=== PATIENT | male | born 1960 | race Caucasian/White ===

== ENCOUNTER 2019-06-21 15:45 | Emergency (ER) | payer BC ==
[~2019-06-21] VITALS: Ht 170.2 cm; Wt 104.3 kg
[~2019-06-21 15:45] MED LIST: IBUPROFEN600 MG PO; PRILOSEC20 MG PO
[2019-06-21] MEDS ORDERED: CYCLOBENZAPRINE10 MG PO (18:30)
== END 2019-06-21 18:46 | disposition home or self-care (01) ==
LOC: ED 15:45
DX: S16.1XXA Strain of muscle, fascia and tendon at neck level, initial encounter (principal); X58.XXXA Exposure to other specified factors, initial encounter; Z87.891 Personal history of nicotine dependence
CPT/HCPCS: 70498; 80053; 85025; 85379; 99284-25; Q9967

== ENCOUNTER 2020-07-08 07:35 | Day surgery (SDC) | payer BC ==
[~2020-07-08] VITALS: Ht 170.2 cm; Wt 100.0 kg
[~2020-07-08 07:35] MED LIST changes: +CYCLOBENZAPRINE10 MG PO
--- NOTE | 2020-07-08 09:45 | NUR ---
07/08/20 0945 Carmen Galvan 0964 PATIENT ARRIVES TO PACU AWAKE. DENIES PAIN OR NAUSEA. OXYGEN OFF. ROOM AIR SATS >95%.
--- NOTE | 2020-07-09 20:06 | OR ---
[facility] [address] [place], [place] [address] Signed DATE OF OPERATION: 07/08/2020 SURGEON: Jacque Valdovinos MD PREOPERATIVE DIAGNOSIS: History of left-sided adenomatous polyp 2014. POSTOPERATIVE DIAGNOSIS: Two small polyps, rectum and sigmoid. PROCEDURE: Total colonoscopy to cecum with cold morcellation polypectomy x2. ANESTHESIA: Intravenous sedation with fentanyl 100 mcg and Versed 8 mg. INDICATION: This 60-year-old white man is a patient Dr. Latrell Gutiérrez. He has history of left-sided polyp excision in 2014. He is symptom free, having no bleeding, diarrhea, or constipation. Has no family history of colon cancer. He is here for surveillance colonoscopy. He understands the risks of bleeding, infection, and perforation related to colonoscopy and wished to proceed. FINDINGS: The prep was excellent. Complete colonoscopy was undertaken to the cecum without question. There were 2 small polyps, one diminutive in the sigmoid and other more substantial in the rectum both excised with cold morcellation technique. There were no other findings of concern. DESCRIPTION OF PROCEDURE: The patient was brought to the endoscopy suite and placed in lateral decubitus position, given intravenous sedation to the point of slurred speech and nystagmus. Digital rectal examination was normal. An Olympus video colonoscope was passed in the rectum and manipulated throughout the colon ultimately intubating the cecum itself. The ileocecal valve and appendiceal orifice were normal. Scope was withdrawn from that point and examination throughout showed no sign of abnormality until a mid sigmoid diminutive polyp was noted. Narrow band imaging confirmed this to be a polyp. It was excised with cold morcellation technique. The scope was withdrawn and retroflexed view undertaken showing a relatively Electronically Signed By: JACQUE VALDOVINOS MD 07/09/202005 PATIENT NAME: BRIAN CHILDERS OPERATIVE REPORT DATE OF : 60 REPORT #: [id number] PHYSICIAN: JACQUE VALDOVINOS MD PCP: LATRELL GUTIÉRREZ MD REPORT IS CONFIDENTIAL AND NOT TO BE RELEASED WITHOUT AUTHORIZATION [facility] [address], [place] [address] Signed low rectal polyp. This was almost certainly adenomatous based on its appearance. Attempts were made to excise with a snare, but given the technical features of the rectum and retroflexed view and so forth it was not possible and therefore, a cold morcellation excision was undertaken. The scope was straightened, withdrawn, removed, and the patient was taken to the recovery room in good condition. CONCLUDING DIAGNOSIS: Polyps x2. PLAN: Recommend repeat colonoscopy in 5 years or sooner if clinically indicated. He will return to the ongoing care of Dr. Latrell Gutiérrez. MD STEFF Luke/JOEL /[id number] cc: Latrell Gutiérrez MD Copies: LATRELL GUTIÉRREZ DMD ~ Electronically Signed By: JACQUE VALDOVINOS MD 07/09/202005 PATIENT NAME: BRIAN CHILDERS OPERATIVE REPORT DATE OF : 60 REPORT #: [id number] PHYSICIAN: JACQUE VALDOVINOS MD PCP: LATRELL GUTIÉRREZ MD REPORT IS CONFIDENTIAL AND NOT TO BE RELEASED WITHOUT AUTHORIZATION
--- NOTE | 2020-07-11 15:08 | PATH ---
[facility] [address] [place], [place] [address] Signed SPECIMEN(S): A SIGMOID POLYP SPECIMEN(S): B RECTAL POLYP SPECIMEN SOURCE: A. SIGMOID POLYP B. RECTAL POLYP CLINICAL HISTORY: Colonoscopy with poss. biopsies. History of polyps, post polyps x 2. MICROSCOPIC DESCRIPTION: Histologic sections of all submitted blocks are examined by light microscopy. These findings, together with the gross examination, support the pathologic diagnosis. FINAL PATHOLOGIC DIAGNOSIS: A. Colon, sigmoid, polyp, polypectomy: - Colonic mucosa with no histopathologic abnormality. - Negative for dysplasia or malignancy. B. Rectum, polyp, polypectomy: - Hyperplastic polyp. - Negative for dysplasia or malignancy. COMMENT: Regarding specimen A: Multiple additional deeper levels were examined. NAL:cml:C2NR GROSS DESCRIPTION: Two specimens are received in two containers, labeled "BB." A. The specimen, labeled "BB, sigmoid colon polyp," is received in formalin and consists of one lee soft tissue fragment that measures 0.1 cm in greatest dimension. The specimen is entirely submitted in cassette (A1). B. The specimen, labeled "BB, rectum polyp," is received in formalin and consists of two lee soft tissue fragments that measure 0.1-0.2 cm in greatest dimension. The specimen is entirely submitted in cassette (B1). JS (under the direct supervision of a pathologist) The Gross Description was prepared using a voice recognition system. The report was reviewed for accuracy; however, sound-alike word errors, addition and/or deletions may occur. If there is any question about this report, please contact Client Services. PATIENT NAME: BRIAN CHILDERS PATHOLOGY DATE OF : 60 REPORT #: [id number] PHYSICIAN: [facility] PATHOLOGY PCP: LATRELL GUTIÉRREZ MD REPORT IS CONFIDENTIAL AND NOT TO BE RELEASED WITHOUT AUTHORIZATION [facility] [address] [place] [address] Signed PERFORMING LABORATORY: The technical component was performed [place] [address] (Candy Butcher: Racquel Keene MD; CLIA# [id number]). Professional interpretation was performed by [employer] [facility], [address] [address] (CLIA# [id number]). Diagnostician: Kailee Honeycutt MD Pathologist Electronically Signed 07/11/2020 Copies: ~ PATIENT NAME: BRIAN CHILDERS PATHOLOGY DATE OF : 60 REPORT #: [id number] PHYSICIAN: SHAGU[facility] PATHOLOGY PCP: LATRELL GUTIÉRREZ MD REPORT IS CONFIDENTIAL AND NOT TO BE RELEASED WITHOUT AUTHORIZATION
== END 2020-07-08 10:10 | disposition home or self-care (01) ==
LOC: OPS 07:35 → DS 07:35 → OPS 08:45 → DS 09:00 → OPS 10:10
PROVIDERS: ATTEND Surgery
PROC: 0DBN8ZX Excision of Sigmoid Colon, Via Natural or Artificial Opening Endoscopic, Diagnostic (ICD-10-PCS; 2020-07-08)
PROC: 0DBP8ZX Excision of Rectum, Via Natural or Artificial Opening Endoscopic, Diagnostic (ICD-10-PCS; principal; 2020-07-08 08:45)
DX: Z12.11 Encounter for screening for malignant neoplasm of colon (principal); K62.1 Rectal polyp; K63.5 Polyp of colon; R31.9 Hematuria, unspecified; K21.9 Gastro-esophageal reflux disease without esophagitis
CPT/HCPCS: 99153; G0500; J2250; J3010; J7121

== ENCOUNTER 2020-12-16 11:55 | Day surgery (SDC) | payer BC ==
[~2020-12-16] VITALS: Ht 167.6 cm; Wt 97.7 kg
[2020-12-16] MEDS ORDERED: FLOMAX0.4 MG PO (12:17)
--- NOTE | 2020-12-16 14:00 | NUR ---
12/16/20 1400 Leah Palmer 1355 PT ARRIVED TO PACU ON 2L VIA NC, PT AWAKE AND TALKING TO RN. VSS. PLAN OF CARE DISCUSSED.
--- NOTE | 2020-12-22 16:26 | OR ---
[facility] [address] [place], [place] [address] Signed DATE OF OPERATION: 12/16/2020 SURGEON: Jacque Valdovinos MD PREOPERATIVE DIAGNOSIS: Episodic dysphagia and CT scan finding showing thickened esophagus. POSTOPERATIVE DIAGNOSES: Severe distal esophagitis, marked inflammation, likely benign, but possibly dysplastic. PROCEDURE: Esophagogastroduodenoscopy with biopsy. ANESTHESIA: IV sedation; fentanyl 100 mcg and Versed 4 mg. INDICATION: This 60-year-old white man is a patient of Dr. Latrell Gutiérrez and in evaluation for nephrolithiasis underwent a CT scan, which showed a markedly thickened distal esophagus. The patient has longstanding reflux and only episodic use of PPI medication. He does complain of some dysphagia, but is not severe. He has no family history of esophageal cancer. He is admitted at this time to undergo upper endoscopy to better characterize the issue of the distal esophagus based on CT scan findings and his symptoms. He understands risks of bleeding, infection, and perforation, wished to proceed. FINDINGS: Indeed, there was marked severe inflammation and thickening of the distal esophageal mucosa. There may be Hackett's epithelium associated with this. More proximal esophagus was normal. The stomach and duodenum were normal except for hiatal hernia, which was quite obvious. CLOtest was -20 minutes post procedure. DESCRIPTION OF PROCEDURE: The patient was brought to the endoscopy suite and placed in lateral decubitus position after undergoing lidocaine hypopharyngeal anesthesia. He was given intravenous sedation with full cardiopulmonary monitoring to the point of slurred speech and nystagmus. A bite block was placed. An Olympus video upper endoscope was passed in the hypopharynx. The vocal cords appeared normal. Scope was advanced to the esophagus without problem. There was normal except in the distal portion where there was marked inflammatory change in thickening. Electronically Signed By: JACQUE VALDOVINOS MD 12/22/20 1626 PATIENT NAME: BRIAN CHILDERS OPERATIVE REPORT DATE OF : 60 REPORT #: [id number] PHYSICIAN: JACQUE VALDOVINOS MD PCP: LATRELL GUTIÉRREZ MD REPORT IS CONFIDENTIAL AND NOT TO BE RELEASED WITHOUT AUTHORIZATION [facility] [address] [place], [place] [address] Signed There is almost a flaky pseudo membranous mucosa distally. It did not have typical appearance of malignancy proper however. The scope was passed into the stomach without problem. Rugal folds and antral motility appeared normal. The pylorus was normal. Scope was passed through into the duodenum. Biopsies were taken of the duodenal bulb and the antrum for both YAKELIN and pathologic testing for the latter. Retroflexed view confirmed hiatal hernia. The scope was withdrawn to the distal esophagus. Narrow band imaging was undertaken and multiple biopsies taken. There may be underlying Hackett's epithelium. It was not entirely clear. The scope was withdrawn. A midesophageal biopsies at 25 cm were also undertaken. That esophageal portion was normal. The scope was removed and the patient was taken to the recovery room in good condition. CONCLUDING DIAGNOSES: Severe distal esophagitis, thick mucosal membranes, unclear if underlying Hackett's epithelium and uncertain regarding dysplasia or malignancy proper. PLAN: Recommend Prilosec 20 mg p.o. b.i.d. We will see back in the office in 4 to 6 weeks. Review his progress from clinical response of treatment. All this was reviewed with the patient. Jacque Valdovinos MD JM/MODL /[id number] cc: Latrell Gutiérrez MD Copies: LATRELL GUTIÉRREZ DMD ~ Electronically Signed By: JACQUE VALDOVINOS MD 12/22/20 1626 PATIENT NAME: BRIAN CHILDERS OPERATIVE REPORT DATE OF : 60 REPORT #: [id number] PHYSICIAN: JACQUE VALDOVINOS MD PCP: LATRELL GUTIÉRREZ MD REPORT IS CONFIDENTIAL AND NOT TO BE RELEASED WITHOUT AUTHORIZATION
--- NOTE | 2020-12-23 13:35 | PATH ---
[facility] [address] [place], [place] [address] Signed THIS IS AN ADDENDUM REPORT SPECIMEN(S): A DUODENUM SPECIMEN(S): B ANTRUM SPECIMEN(S): C DISTAL ESOPHAGUS SPECIMEN(S): D ESOPHAGUS AT 25 CM SPECIMEN SOURCE: A. DUODENUM B. ANTRUM C. DISTAL ESOPHAGUS D. ESOPHAGUS AT 25 CM CLINICAL HISTORY: EGD. Esophageal thickening and reflux. MICROSCOPIC DESCRIPTION: Histologic sections of all submitted blocks are examined by light microscopy. These findings, together with the gross examination, support the pathologic diagnosis. FINAL PATHOLOGIC DIAGNOSIS: A. Duodenum, biopsy: - No significant histopathology. B. Antrum, biopsy: - No significant histopathologic alterations. C. Distal esophagus, biopsy: - Acute esophagitis. - Fragments of fibropurulent debris consistent with the presence of an ulcer. - No evidence of neoplasia. D. Esophagus, 25 cm, biopsy: - Mucosal eosinophilia, see comment. COMMENT: Regarding specimen A, the sections from the duodenal biopsy show portions of duodenal mucosa with long finger-like villi. There is no villous atrophy, crypt hyperplasia or intraepithelial lymphocytosis, making a diagnosis of celiac disease unlikely. There is no evidence of peptic duodenitis, microorganisms, abnormal infiltrates or neoplasia. Regarding specimen B, the sections through the gastric biopsies show fragments of histologically unremarkable oxyntic mucosa. There is no evidence of acute or PATIENT NAME: BRIAN CHILDERS BEN PATHOLOGY DATE OF : 60 REPORT #: [id number] PHYSICIAN: SHAGUFTA PATHOLOGY PCP: LATRELL GUTIÉRREZ MD REPORT IS CONFIDENTIAL AND NOT TO BE RELEASED WITHOUT AUTHORIZATION [facility] [address] [place], [place] [address] Signed chronic inflammation. There is no evidence of H. pylori, intestinal metaplasia, abnormal infiltrates or neoplasia. Regarding specimen C, the sections through the esophageal biopsy show a reactive appearing and acutely inflamed squamous epithelium. There is no evidence of glandular mucosa. There are also fragments of inflammatory debris consistent with the presence of an ulcer or erosion. No fungi are identified in the inflammatory exudate. No viral inclusions are seen. PAS stain to confirm the absence of fungi is pending. Results will follow in an addendum report. Regarding specimen D, The sections through the biopsy show the presence of squamous epithelium that is infiltrated by large numbers of eosinophils. They do not number 20 per high-power field as in classical eosinophilic esophagitis and there are no eosinophilic microabscesses. Up to 16 eosinophils per high-power field are identified in this specimen. There are more eosinophils than are typically seen in patients with GERD. This patient may have incomplete manifestations of eosinophilic esophagitis or GERD with increased eosinophils. The changes may also be produced by reactions to drugs, infections or allergies. TWK:em:C2NR GROSS DESCRIPTION: Four specimens are received in four containers labeled with "BB". A. The specimen, labeled "BB, duodenum," is received in formalin and consists of two fragments of pink-lee tissue (0.2-0.3 cm in greatest dimension). The specimen is submitted entirely in cassette (A1). B. The specimen, labeled "BB, antrum," is received in formalin and consists of two fragments of pink-lee tissue (0.2-0.3 cm in greatest dimension). The specimen is submitted entirely in cassette (B1). C. The specimen, labeled "BB, distal esophagus," is received in formalin and consists of multiple fragments of pink-lee tissue (0.1-0.3 cm in greatest dimension). The specimen is submitted entirely in cassette (C1). D. The specimen, labeled "BB, esophagus at 25 cm," is received in formalin and consists of two fragments of pink-lee tissue (0.3-0.4 cm in greatest dimension). The specimen is submitted entirely in cassette (D1). AC (under the direct supervision of a pathologist) PATIENT NAME: BRIAN CHILDERS PATHOLOGY DATE OF : 60 REPORT #: [id number] PHYSICIAN: SHAGUFTA PATHOLOGY PCP: LATRELL GUTIÉRREZ MD REPORT IS CONFIDENTIAL AND NOT TO BE RELEASED WITHOUT AUTHORIZATION [facility] [address] [place], [place] [address] Signed The Gross Description was prepared using a voice recognition system. The report was reviewed for accuracy; however, sound-alike word errors, addition and/or deletions may occur. If there is any question about this report, please contact Client Services. PERFORMING LABORATORY: The technical component was performed by [employer], [address] [place] [id number] (Mechanical Maintenance: Racquel Keene MD; CLIA# [id number]). [facility], [address] [place] [address]. REASON FOR ADDENDUM: To add results of additional testing for specimen C. ADDENDUM COMMENT: A PAS stain is negative for fungal microorganisms. Control slide stained appropriately positive. There is no change in the above diagnosis. TWK:[facility] The technical component was performed by [employer], [address] [place] [id number] (Mechanical Maintenance: Racquel Keene MD; CLIA# [id number]). [facility], [address] [address] (CLIA# [id number]). Diagnostician: Michael Martinez MD Pathologist Electronically Signed 12/23/2020 Copies: ~ PATIENT NAME: BRIAN CHILDERS PATHOLOGY DATE OF : 60 REPORT #: [id number] PHYSICIAN: SHAGUFTA PATHOLOGY PCP: LATRELL GUTIÉRREZ MD REPORT IS CONFIDENTIAL AND NOT TO BE RELEASED WITHOUT AUTHORIZATION
== END 2020-12-16 14:40 | disposition home or self-care (01) ==
LOC: OPS 11:55 → DS 11:55 → OPS 14:00
PROVIDERS: ATTEND Surgery
PROC: 0DB68ZX Excision of Stomach, Via Natural or Artificial Opening Endoscopic, Diagnostic (ICD-10-PCS; 2020-12-16)
PROC: 0DB28ZX Excision of Middle Esophagus, Via Natural or Artificial Opening Endoscopic, Diagnostic (ICD-10-PCS; 2020-12-16)
PROC: 0DB38ZX Excision of Lower Esophagus, Via Natural or Artificial Opening Endoscopic, Diagnostic (ICD-10-PCS; 2020-12-16)
PROC: 0DB98ZX Excision of Duodenum, Via Natural or Artificial Opening Endoscopic, Diagnostic (ICD-10-PCS; principal; 2020-12-16 14:00)
DX: K21.00 Gastro-esophageal reflux disease with esophagitis, without bleeding (principal); K44.9 Diaphragmatic hernia without obstruction or gangrene; Z20.822 Contact with and (suspected) exposure to COVID-19
CPT/HCPCS: 99153; G0500; J2250; J3010; J7121; U0003

== ENCOUNTER 2021-04-19 15:07 | Emergency (ER) | payer OTHER, BC ==
[~2021-04-19] VITALS: Ht 167.6 cm; Wt 97.5 kg
[~2021-04-19 15:07] MED LIST changes: +FLOMAX0.4 MG PO
== END 2021-04-19 17:53 | disposition home or self-care (01) ==
LOC: ED 15:07
DX: S83.91XA Sprain of unspecified site of right knee, initial encounter (principal); W10.9XXA Fall (on) (from) unspecified stairs and steps, initial encounter; Y99.0 Civilian activity done for income or pay; Z79.899 Other long term (current) drug therapy
CPT/HCPCS: 73560; 99283-25; A9270

== ENCOUNTER 2021-05-01 10:56 | Day surgery (SDC) | payer BC ==
[~2021-05-01] VITALS: Ht 167.6 cm; Wt 96.8 kg
--- NOTE | ~2021-05-01 | OR ---
[facility] [address] [place], [place] [address] Draft DATE OF OPERATION: 05/01/2021 SURGEON: Jacque Valdovinos MD PREOPERATIVE DIAGNOSIS: Known severe ulcerative esophagitis (December 16, 2020), possible eosinophilic esophagitis concurrently. POSTOPERATIVE DIAGNOSIS: Persistent but improved distal ulcerative esophagitis. PROCEDURE: Esophagogastroduodenoscopy with biopsy. ANESTHESIA: Intravenous sedation, fentanyl 100 mcg and Versed 3 mg. INDICATION: A 61-year-old white man a patient Dr. Gutiérrez known to me from the past having undergone upper endoscopy on December 16, 2020 showing severe ulcerative esophagitis. It is noted that an addendum pathology report confirmed elevated levels of eosinophils, but not reaching the threshold of true eosinophilic esophagitis. He was treated with Prilosec 20 mg a day and initiated on fluticasone spray two puffs swallowed b.i.d. with one week of rest per month regarding the Flonase. He has had much improvement of his swallowing, which was previously significant. Though he did have severe distal esophagitis, he did not have a well-formed stricture previously. He is here for short-term surveillance of the problem in particular to affirm or refute eosinophilic esophagitis but also ascertain that the distal esophageal ulceration is improving or healing for fear of progression to malignancy over time. The risk of bleeding, infection, and perforation were reviewed with him. He understands and wished to proceed. FINDINGS: Indeed there were still some distal esophageal ulcerative changes but no sign of neoplasm proper. Stomach and duodenum were normal essentially. The flap valve was marginal consistent with hiatal hernia. The midesophagus had a chronically inflamed appearance, but no sign of stricture proper. Biopsies were dominantly taken in the distal esophagus and mid esophagus. DESCRIPTION OF PROCEDURE: The patient was brought to the endoscopy suite and given topical lidocaine PATIENT NAME: BRIAN CHILDERS OPERATIVE REPORT DATE OF : 60 REPORT #: [id number] PHYSICIAN: JACQUE VALDOVINOS MD PCP: LATRELL GUTIÉRREZ MD REPORT IS CONFIDENTIAL AND NOT TO BE RELEASED WITHOUT AUTHORIZATION [facility] [address] [place], [place] [address] Draft hypopharyngeal spray anesthesia and placed in the lateral decubitus position. He was given intravenous sedation to the point of slurred speech and nystagmus. A bite block was placed. An Olympus video upper endoscope was passed in the hypopharynx. The vocal cords appeared normal including the posterior commissure. The scope was advanced to the esophagus without problem. In the distal portion was obvious persistence of esophageal ulceration, but no sign of neoplasm and no Hackett's epithelium. Scope was advanced to the stomach, which was insufflated with air. Rugal folds were normal. There was no sign of ulceration. The pylorus was normal. Scope was passed through into the duodenum, which was normal. Scope was withdrawn and retroflexed view was undertaken showing a relatively small to moderate hiatal hernia. Scope was straightened and withdrawn to the distal esophagus where multiple biopsies were taken of the area of ulceration in the distal most esophagus. There was no evidence of Hackett's epithelium. The scope was withdrawn in the mid esophagus multiply biopsied as well as it had a chronic inflammatory appearance and there appeared to be a small pits though this may have been a visual artifact. Further withdrawal of scope showed no other abnormalities. The patient was taken to the recovery room in good condition. CONCLUDING DIAGNOSIS: Persistent distal esophageal inflammation and ulceration, but improved. Clinically quite silent at this point. PLAN: Pending biopsies regarding the esophagus, I would recommend continued use of Prilosec 20 mg daily and fluticasone two sprays swallowed b.i.d. resting from the fluticasone therapy one week out of four. He will see me back in approximately eight weeks. We will review his progress and his pathology reports. MD STEFF Luke/MODL /[id number] cc: Latrell Gutiérrez MD Dr. PATIENT NAME: BRIAN CHILDERS OPERATIVE REPORT DATE OF : 60 REPORT #: [id number] PHYSICIAN: JACQUE VALDOVINOS MD PCP: LATRELL GUTIÉRREZ MD REPORT IS CONFIDENTIAL AND NOT TO BE RELEASED WITHOUT AUTHORIZATION [facility] [address] [place] [address] [place], [place] [address] Draft Copies: LATRELL GUTIÉRREZ [facility] ~ PATIENT NAME: BRIAN CHILDERS OPERATIVE REPORT DATE OF : 60 REPORT #: [id number] PHYSICIAN: JACQUE VALDOVINOS MD PCP: LATRELL GUTIÉRREZ MD REPORT IS CONFIDENTIAL AND NOT TO BE RELEASED WITHOUT AUTHORIZATION
[~2021-05-01 10:56] MED LIST changes: +ARNUITY ELLIPT50 MCG; +CENTRUM ADULTS1 EACH PO; +VITAMIN C500 M1 PO
--- NOTE | 2021-05-01 11:05 | NUR ---
BOTH NARES SWABBED FOR COVID-19 WITHOUT COMPLICATION. SAMPLE TAKEN TO LAB.
--- NOTE | 2021-05-01 13:23 | NUR ---
05/01/21 1323 Leah Palmer 1317 PT ARRIVED TO PACU AND TALKING TO RN. VSS. PT DENIES PAIN AND NAUSEA. PLAN OF CARE DISCUSSED.
--- NOTE | 2021-05-03 16:22 | PATH ---
[facility] [address] [place], [place] [address] Signed SPECIMEN(S): A LOW ESOPHAGEAL BIOPSY SPECIMEN(S): B MID ESOPHAGEAL BIOPSY SPECIMEN SOURCE: A. LOW ESOPHAGEAL BIOPSY B. MID ESOPHAGEAL BIOPSY CLINICAL HISTORY: EGD. GERD with ulcerative esophagitis; family history of esophageal CA. Postop Dx: Persistent ulcerative esophagitis. FINAL PATHOLOGIC DIAGNOSIS: A. Esophagus, lower, biopsy: - Esophageal squamous mucosa with active esophagitis and ulceration. (see comment) B. Esophagus, mid, biopsy: - Esophageal squamous mucosa with no significant pathologic changes. - Negative for increased intraepithelial eosinophils. COMMENT: A. Special stains for fungal organisms are negative (GMS). Immunohistochemical stains for CMV and HSV1 and HSV2 are negative. All controls stain appropriately. BRP:zackh:cml:C2NR MICROSCOPIC EXAMINATION: Histologic sections of all submitted blocks are examined by light microscopy. These findings, together with the gross examination, support the pathologic diagnosis. GROSS DESCRIPTION: Two specimens are received in two containers, labeled "BB." A. The specimen, labeled "BB," and designated on the requisition "lower esophagus," is received in formalin and consists of three lee soft tissue fragments that measure 0.3-0.4 cm in greatest dimension. The specimen is entirely submitted in cassette (A1). B. The specimen, labeled "BB," and designated on the requisition "mid esophagus," is received in formalin and consists of multiple thin, lee soft tissue fragments that measure 2.0 x 0.3 x 0.2 cm in greatest dimension. The specimen is entirely submitted in cassette (B1). AT (under the direct supervision of a pathologist) PATIENT NAME: BRIAN CHILDERS PATHOLOGY DATE OF : 60 REPORT #: [id number] PHYSICIAN: SHAGUFTA PATHOLOGY PCP: LATRELL GUTIÉRREZ MD REPORT IS CONFIDENTIAL AND NOT TO BE RELEASED WITHOUT AUTHORIZATION [facility] [address] [place] [id number] Signed The Gross Description was prepared using a voice recognition system. The report was reviewed for accuracy; however, sound-alike word errors, addition and/or deletions may occur. If there is any question about this report, please contact Client Services. ADDITIONAL NOTES: Immunohistochemical and/or in situ hybridization studies were performed on this case with the appropriate positive controls that react as expected. This test was developed and its performance characteristics determined by [email or web address]. It has not been cleared or approved by the U.S. Food and Drug Administration. The FDA has determined that such clearance or approval is not necessary. This test is used for clinical purposes. It should not be regarded as investigational or for research. [facility] is certified under the Clinical Laboratory Improvement Amendments of 1988 (CLIA) as qualified to perform high complexity clinical laboratory testing. This assay has not been validated for specimens that have been decalcified. PERFORMING LABORATORY: The technical component was performed by [email or web address], [address] [place] [id number] (Research Affiliate: Racquel Keene MD; CLIA# [id number]). [facility], [address] [address] (CLIA# [id number]). Diagnostician: Ronnell Howe MD Pathologist Electronically Signed 05/03/2021 Copies: ~ PATIENT NAME: ALVARADO BEN PATHOLOGY DATE OF : 60 REPORT #: [id number] PHYSICIAN: SHAGUFTA PATHOLOGY PCP: LATRELL GUTIÉRREZ MD REPORT IS CONFIDENTIAL AND NOT TO BE RELEASED WITHOUT AUTHORIZATION
== END 2021-05-01 13:55 | disposition home or self-care (01) ==
LOC: OPS 10:56 → DS 10:56 → OPS 13:00
PROVIDERS: ATTEND Surgery
PROC: 0DB38ZZ Excision of Lower Esophagus, Via Natural or Artificial Opening Endoscopic (ICD-10-PCS; principal; 2021-05-01 13:00)
DX: K22.10 Ulcer of esophagus without bleeding (principal); K21.00 Gastro-esophageal reflux disease with esophagitis, without bleeding; Z20.822 Contact with and (suspected) exposure to COVID-19; Z80.0 Family history of malignant neoplasm of digestive organs
CPT/HCPCS: 99153; C9803; G0500; J2250; J3010; J7121; U0003

== ENCOUNTER 2021-08-14 09:55 | Day surgery (SDC) | payer OTHER, BC ==
--- NOTE | 2021-08-10 16:04 | NUR ---
TO WHOME IT MAY CONCERN BRIAN CHILDERS HAS TO BE AT THE HOSPITAL AT 8AM ON 08-11-21 FOR A PRE SURGICAL TEST. IF QUESTIONS PLEASE CALL DAY SURGERY [phone] THANK YOU SILVANA GÓMEZ MSN RN PRE ADMIT NURSE
[~2021-08-14] VITALS: Ht 167.6 cm; Wt 96.4 kg
[2021-08-14] MEDS ORDERED: CELECOXIB200 MG PO (12:23)
[2021-08-14] MEDS ORDERED: HYDROCODON-ACE1 EA10 PO (12:23)
--- NOTE | 2021-08-14 12:35 | NUR ---
08/14/21 1235 Mireille Gómez 1228- PT ARRIVES TO PACU NONAROUSABLE TO STIMULI. RESP EVEN AND UNLABORED. OXYGEN SAT HIGH 90'S TO 100% ON 6L VIA MASK.
--- NOTE | 2021-08-14 13:09 | NUR ---
1300 PT BACK TO ROOM FROM PACU AWAKE AND ALERT, PT DENIES PAIN AND NAUSEA. PT DRINKING WATER AND EATING CRACKERS TOLERATES WELL. WARM BLANKETS GIVEN , CALL LIGHT WITHIN REACH.
--- NOTE | 2021-08-14 14:39 | NUR ---
1415 RESTING COMFORTABLEY DENIES PAIN OR NAUSEA, DECLINES ANYTHING ELSE TO EAT OR DRINK, RT LEG CMS INTACT. DRESSING CLEAN AND DRY, PT REPORTS READINESS TO GO HOME IV DC'D TIP IN TACT, DISCHARGE INSTRUCTIONS GIVEN, PT VOICED UNDERSTANDING.
--- NOTE | 2021-08-15 07:32 | OR ---
[facility] [address] [place], [place] [address] Signed DATE OF OPERATION: 08/14/2021 SURGEON: Luther Mendoza MD PREOPERATIVE DIAGNOSIS: Medial meniscus tear, right knee. POSTOPERATIVE DIAGNOSIS: Medial meniscus tear, right knee. PROCEDURE PERFORMED: Right knee arthroscopy with partial medial meniscectomy. TOP CARRIER: VIRGINIA Baltazar. Larissa was present for the entire procedure. ANESTHESIA: General. BLOOD LOSS: Minimal. BRIEF HISTORY: is a 61-year-old gentleman with pain and locking in his knee. He had an MRI consistent with fairly large medial meniscus tear. Risks and benefits of the operative treatment were discussed with him. He elected to proceed. Once consent was obtained, he was taken to the operating room. After adequate anesthesia, he was placed on operating table. The left leg was flexed, abducted and externally rotated on a well-padded leg jacob. The right was placed in a leg jacob with a foam pad. The leg was then prepped and draped in a standard sterile fashion. Portal sites were injected using 0.25% Marcaine with epinephrine and standard inferolateral and superolateral portals were made. The scope was introduced into the knee. ARTHROSCOPIC FINDINGS: Minimal synovitis was noted primarily along the medial joint line. The patella was noted to be stable and track well. The medial and lateral gutters were clear. ACL and PCL were intact. Lateral compartment was intact. Medial compartment showed no significant chondromalacia. The meniscus was torn from mid posterior to the mid body medially. Electronically Signed By: LUTHER MENDOZA MD 08/15/21 0732 PATIENT NAME: BRIAN CHILDERS OPERATIVE REPORT DATE OF : 60 REPORT #: [id number] PHYSICIAN: LUTHER MENDOZA MD PCP: LATRELL GUTIÉRREZ MD REPORT IS CONFIDENTIAL AND NOT TO BE RELEASED WITHOUT AUTHORIZATION [facility] [address] [place], [place] [address] Signed DESCRIPTION OF PROCEDURE: Standard inferomedial portal was made after localization using a spinal needle. The straight and curved biters were used to trim the meniscus tear to a stable rim, this was smoothed and feathered out using the shaver. All debris was evacuated as we went. The scope was then withdrawn, portals closed with 3-0 nylon and dressed with Adaptic, ABD, and Gómez wrap. He tolerated the procedure well. Sponge, needle, and instrument counts were correct. Luther Mendoza MD BA/LEONILAL /[id number] Copies: ~ Electronically Signed By: LUTHER MENDOZA MD 08/15/21 0732 PATIENT NAME: BRIAN CHILDERS OPERATIVE REPORT DATE OF : 60 REPORT #: [id number] PHYSICIAN: LUTHER MENDOZA MD PCP: LATRELL GUTIÉRREZ MD REPORT IS CONFIDENTIAL AND NOT TO BE RELEASED WITHOUT AUTHORIZATION
== END 2021-08-14 14:28 | disposition home or self-care (01) ==
LOC: DS 09:55
PROVIDERS: ATTEND Specialist
PROC: 0SBC4ZZ Excision of Right Knee Joint, Percutaneous Endoscopic Approach (ICD-10-PCS; principal; 2021-08-14 12:00)
DX: S83.241A Other tear of medial meniscus, current injury, right knee, initial encounter (principal); X50.9XXA Other and unspecified overexertion or strenuous movements or postures, initial encounter; Z87.891 Personal history of nicotine dependence
CPT/HCPCS: J0131; J1100; J1885; J2001; J2405; J2704; J3010

== ENCOUNTER 2021-11-07 05:41 | Observation (INO) | payer BC ==
--- NOTE | 2021-10-23 16:42 | NUR ---
PT DID NOT SHOW UP FOR SCHEDULED PRE-ADMIT AT 1600. PT PHONED, NO ANSWER AND VOICEMAIL LEFT TO CALL DS DEPT.
[~2021-11-07] VITALS: Ht 167.6 cm; Wt 97.7 kg
[~2021-11-07 05:41] MED LIST changes: +CELECOXIB200 MG PO; +HYDROCODON-ACE1 EA10 PO; +PRILOSEC OTC20 MG PO; -PRILOSEC20 MG PO
--- NOTE | 2021-11-07 09:44 | NUR ---
11/07/21 0944 Makenna Nichols 0927 PT ARRIVED IN PACU NON RESPONSIVE TO NOXIOUS STIMULI WITH OPA IN PLACE. 0929 PT REACTIVE. OPA REMOVED. 35 SITTING UP IN BED WITH NO C/O'S.
--- NOTE | 2021-11-07 10:21 | NUR ---
PT ARRIVED FROM PACU, REPORT RECEIVED FROM NOLAN ARGUETA. PT ALERT AND ORIENTED TO ALL BUT STATES HE FEELS "PRETTY GROGGY." PT DENIES PAIN AND NAUSEA. NO HORSE VOICE OR EXCESSIVE SWALLING NOTED. NO EXCESSIVE SWELLING TO NECK NOTED. PT REPORTS NO CHANGES TO ADMISSION INFORMATION. ALL BELONGINGS BROUGHT TO ROOM WITH PT IN HIS BAG AND PLACED IN CLOSET. IV ASSESSED, WNL, NO S/S OF PHLEBITIS NOTED. IV FLUIDS STARTED. TRACE EDMA NOTED TO BLE. SCD'S IN PLACE. PT DENIES CALF PAIN. CMS INTACT. ACTICOAT DRESSING TO THROAT WNL, C/D/I BUT FOR PIN POINT SPOT OF RED DRAINAGE. PT DENIES TROUBLE SWALLOWING. PT RESTING IN BED, NO ADDITIONAL REQUESTS OR COMPLAINTS. CPOX IN PLACE WITH OXGYEN SATURATIONS 93-98 ON ROOM AIR. ICE WATER PROVIDED. PT OREINTED TO ROOM AND USE OF CALL LIGHT. NO ADDITIONAL NEEDS. CALL LIGHT WITHIN REACH. BED RAILS UP. BED ALARM ON.
--- NOTE | 2021-11-07 10:24 | NUR ---
PT ALERT, ORIENTED AND SEEMS READY FOR SURGERY. SHORT CONVERSATION AND VISIT. GAVE BLESSING AND WILL FOLLOW
--- NOTE | 2021-11-07 11:03 | NUR ---
VITAL SIGNS DUE. PT CONTINUES RESTING IN BED, EYES OPEN, PT ALERT AND ORIENTED. DRESSING UNCHANGED WITH ONLY OLD SMALL PINPOINT SPOT OF RED DRAINAGE. PT REPORTS NO DIFFICULTY SWALLOWING. NO HORSE VOICE NOTED. PT DENEIS ANY NUMBNESS OR TINGLING IN HANDS AND FEET. NO NEW SWELLING TO NECK NOTED. VITAL SIGNS STABLE. PT TOLERATING ROOM AIR WITH OXGYEN SATURATIONS ABOVE 94%. BED RAILS UP. CALL LIGHT WITHIN REACH. NO ADDITIONAL REQUESTS OR COMPLAINTS.
--- NOTE | 2021-11-07 12:00 | NUR ---
VITAL SIGNS DUE. PT RESTING IN BED, AWAKE AND ALERT. PT DENIES PAIN AND NAUSEA. PT TALKING AND TELLING STORIES. NORMAL VOICE TONES NOTED, NO HORSE VOICE. NO NEW SWELLING TO THROAT. DRESSING UNCHANGED WITH ONLY PIN POINT SPOT OF RED DRAINAGE, UNCHANGED. PT DENIES NUMBNESS OR TINLING IN HANDS AND FEET. PT REPORTS SWALLOWING FEELS "NORMAL." APPLE JUICE AND CLEAR LIQUID TRAY PROVIDED. ICE WATER REFILLED. NO ADDITIONAL REQUESTS OR COMPLAINTS. CALL LIGHT [employer] EntertainmentIN REACH. BED ALARM ON.
--- NOTE | 2021-11-07 13:02 | NUR ---
VITALS AND ASSESSMENT DUE. PT CONTINUES RESTING IN BED WITH HEAD OF BED ELEVATED TO 30 DEGREES, READING MAGAZINE. PT REPORTS 1/10 NECK PAIN AND DENIES NEED FOR PAIN MEDICATION AT THIS TIME STATING "I DONT' EVEN REALLY NOTICE IT" PT DENIES NAUSEA. PT ALERT AND ORIENTED TO ALL AND NO LONGER DROWSY. NO SWALLOWING ISSUES NOTED. NO HORSE VOICE NOTED. NO NEW SWELLING OR DRAINAGE NOTED FROM NECK WOUND. DRESSING UNCHANGED, SCANT SPOT OF OLD RED SHADOWING. PT DENIES NUMBNESS OR TINGLING IN HANDS OR FEET. PT HAS VOIDED 300ML CLEAR YELLOW URINE AND IS TOELRATING PO FLUIDS (APPLE JUICE, SORBET AND WATER). PT DENEIS ADDITIONAL NEEDS AT THIS TIME. CALL LIGHT WITHIN REACH. BED RAILS UP.
--- NOTE | 2021-11-07 15:14 | NUR ---
THIS RN TO ROOM TO CHECK ON PT. PT CONTINUES TO DENY PAIN AND NAUSEA. PT STATES "MY NECK DOESN'T BOTHER ME AT ALL, SOMETIMES MY LOWER BACK DOES." PT TELLING STOIRES FROM HIS CAREER. DRESSING TO NECK LOOSE ON RIGHT SIDE. REINFORCED WITH ADDITONAL OPSITE. DRESSING OTHERWISE UNCHANGED. NO CHANGES IN VOICE NOTED. PT CONTINUES TO DENY NUMBNESS, TINGLING OR DIFFICULTY SWALLOWING. PT ALSO DENIES EXCESSIVE SWALLOWING. OXYGEN SATURATION 97% ON ROOM AIR. STAND BY ASSIST UP TO CHAIR, PT STEADY ON FEET. PT LOOKING OUT WINDOW. NO ADDIITONAL REQUESTS OR COMPLAINTS. CALL LIGHT WITHIN REACH.
--- NOTE | 2021-11-07 16:01 | NUR ---
PT POST OP DAY ZERO AFTER LEFT THYROID LOBECTOMY. PT UP WITH STAND BY ASSIST TO CHAIR, STEADY ON FEET. PT TOLERATING CLEAR LIQUID DIET WITH GOOD APPITITE, NO SWALLOWING ISSUES, AND NO NAUSEA. PT REPORTS 0-1/10 PAIN IN NECK THIS SHIFT, NO PRN PAIN MEDICAITON GIVEN SO FAR THIS SHIFT. PTS VOICE REMAINS UNCHANGED. NO NECK SWELLING NOTED. NO NUMBNESS OR TINGLING IN HANDS AND FEET NOTED. PT VOIDIGN QUANTITY SUFFICIENT. ALERT AND OREINTED THROUGHOUT SHIFT. PT USES CALL LIGHT AND MAKES NEEDS KNOWN.
[2021-11-07] MEDS ORDERED: FLUTICASONE PRO16 GM NAS (16:13)
--- NOTE | 2021-11-07 16:20 | NUR ---
THIS RN TO ROOM TO CHECK ON PT. PT CONTINUES TO DENY PAIN AND NAUSEA. VOICE REMAINS NORMAL WITHOUT HORSNESS. CASE MANAGEMENT TO BEDSIDE TO TALK WITH PT. PT DENIES ADDITIONAL REQUESTS OR COMPLAINTS. CALL LIGHT WITHIN REACH. BELONGINGS WITHIN REACH.
[2021-11-07] MEDS ORDERED: VITAMIN C500 M1 PO (16:42)
--- NOTE | 2021-11-07 16:42 | NUR ---
MED REC COMPLETE
--- NOTE | 2021-11-07 17:00 | NUR ---
DR VALDOVINOS CALLED FOR UPDATE. ORDERS GIVEN TO REMOVE ACTICOAT DRESSING TO MIDLINE AND TRANSVERSE ABDOMEN. DR. VALDOVINOS UPDATED ON PTS STATUS AND ASSESSMENT. NO ADDITIONAL NEW ORDERS. PT REMAINS UP TO CHAIR. CALL LIGHT WITHIN REACH.
--- NOTE | 2021-11-07 17:26 | NUR ---
THIS RN TO ROOM TO CHECK ON PT. PT REMAINS UP TO CHAIR. PT TOLERATING CLEAR LIQUID DIET AND REQUESTS ADDITIONAL FOOD. DIET ADVANCED BY NOLAN DRAPER. DINNER ORDER PLACED. 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 PT CONTINUES TO DENY PAIN AND NAUSEA. NO VOCAL OR SWALLOWING CHANGES NOTED. PT DENIES ADDIITONAL REQUESTS OR COMPLAINTS. CALL LIGHT WITHIN REACH. ARNP AT BEDSIDE WORKING WITH PT.
--- NOTE | 2021-11-07 18:04 | NUR ---
DRESSING REMOVAL ORDER ENTERED ON WRONG PT....DO NOT REMOVE DRESSING.
--- NOTE | 2021-11-07 18:40 | NUR ---
THIS RN TO ROOM TO CHECK ON PT. PT WORKING WITH FLOOR RUNNER TO GET BACK TO BED. STAND BY ASSIST. PT DENIES PAIN AND NAUSEA. NO CHANGES IN VOICE OR SWALLOWING NOTED. DRESSING UNCHANGED, NO NEW DRAINAGE. PT REPORTS DINNER "FILL UP THAT HOLE IN MY STOMACH." PT DENIES ADDITIONAL REQUESTS OR COMPLAINTS. CALL LIGHT WITHIN REACH. BED RAILS UP.
--- NOTE | 2021-11-07 19:29 | NUR ---
REPORT RECEIVED FROM DAY SHIFT RN. PT LYING IN BED ALERT AND ORIENTED. DENIES PAIN. SpO2 98% ON RA. HR 80'S. DENIES NEEDS AT THIS TIME. CALL LIGHT IN REACH.
--- NOTE | 2021-11-07 20:39 | NUR ---
EVENING ASSESSMENT COMPLETE. PT DENIES PAIN OR NAUSEA. IVF INFUSING WNL. CPOX IN PLACE. SpO2 98% ON RA. PT DENIES NUMBNESS OR TINGLING IN FACE OR JAW. DENIES SWALLOWING OR BREATHING ISSUES. HOB ELEVATED >30 DEGREES. VS AND I&O COMPLETE. PT DENIES QUESTIONS OR CONCERNS. CALL LIGHT IN REACH.
--- NOTE | 2021-11-07 22:18 | NUR ---
PT CALLED IV ALARMING. NEW BAG INFUSING. PT BED CHANGED DUE TO SPILLAGE OF URINAL. PT AMBULATED INDEPENDENTLY TO BATHROOM UNMEASURED VOID. BACK TO BED.
--- NOTE | 2021-11-07 23:59 | NUR ---
PT RESTING IN BED WITH EYES CLOSED. RESPIRATIONS EVEN. SpO2 MID 90'S ON RA. HR 70'S. HOB ELEVATED. CALL LIGHT IN REACH.
--- NOTE | 2021-11-08 01:27 | NUR ---
VS AND I&O COMPLETE. PT DENIES PAIN OR NAUSEA. DRESSING ON NECK UNCHANGED. PT DENIES BREATHING OR SWALLOWING ISSUES. HOB ELEVATED. IVF INFUSING WNL. SCD'S IN PLACE. NO FURTHER NEEDS. CALL LIGHT IN REACH.
--- NOTE | 2021-11-08 03:55 | NUR ---
PT RESTING IN BED WITH EYES CLOSED. RESPIRATIONS EVEN. SpO2 95% ON RA. HR 50'S.
--- NOTE | 2021-11-08 05:40 | NUR ---
LAB IN ROOM FOR MORNING DRAW. VS AND I&O COMPLETE. SpO2 97% ON RA. HR 50-60'S. PT DENIES PAIN. NECK DRESSING INTACT, NO NEW DRAINAGE NOTED. NO SWELLING NOTED. PT DENIES SWALLOWING ISSUES OR DIFFICULTY BREATHING. PT REPOSITIONED SELF IN BED. HOB ELEVATED 30 DEGREES. BLINDS CLOSED PER REQUEST. NO FURTHER NEEDS.
--- NOTE | 2021-11-08 07:15 | NUR ---
REPORT RECEIVED FROM NOLAN RAHMAN. PT RESTING IN BED STATING "I THINK I JUST FELL ASLEEP WHEN THAT BEEPING HAPPENED." OXGYEN 99% ON ROOM AIR WITH HR OF 62. CPOX DC'D. PT DENIES PAIN AND NAUSEA. VOICE UNCHANGED. DRESSING TO NECK UNCHANGED. NO ADDITIONAL REQUESTS OR COMPLAINTS. PT ALLOWED TO REST. BED RAILS UP. CALL LIGHT WITHIN REACH.
--- NOTE | 2021-11-08 09:02 | NUR ---
MORNING ASSESSMENT DUE. PT UP IN BED READING MAGAZINE. PT DENIES NAUSEA. PT REPORTS / "SORE THROAT," PT DECLINES PAIN MEDICATION AT THIS TIME. IV FLUID BAG COMPLETE. IV SALIEN LOCKED PT IS TAKING PLENTY OF PO FLUIDS AND VOIDING LARGE AMOUNTS. PT UP TO AMBULATE IN MAHAN WITH STAND BY ASSIST, X1 LAP. PT STEADY ON FEET AND REMAINS INDEPENDANT IN ROOM. PT REMAINS ALERT AND OREINTED. LUNG SOUNDS CLEAR. HEART TONES REGULAR. SCD'S DC'D SO PT CAN MOVE ABOUT ROOM AND UNIT FREELY. BOWEL TONES ACTIVE. ABODOMEN SOFT. DRESSING TO NECK UNCHANGED WITH NO NEW DRAINAGE NOTED, ONLY ONE SMALL PINPOINT SPOT OF OLD RED DRAINAGE. DRESSING WELL INTACT. NO NECK SWELLING, CHANGES IN VOICE OR DIFFICULTY SWALLOWING NOTED. PT DENEIS ADDITIONAL REQUESTS OR COMPLAINTS. DISCHARGE INSTRUCTIONS REVEIWED WITH PT. PT STATES HIS QUESTIONS HAVE BEEN ANSWERED. NO ADDITONAL NEEDS. CALL LIGHT WITHIN REACH.
--- NOTE | 2021-11-08 09:30 | NUR ---
PT UP INDEPENDANTLY IN MAHAN WALKING LAPS. PT STEADY ON FEET. PT DRESSED IN CLOTHES FROM HOME, NO ASSISTANCE NEEDED. PT DENIES REQUESTS OR COMPLAINTS.
--- NOTE | 2021-11-08 10:10 | NUR ---
PATIENT AWAKE IN CHAIR, VITALS AND I&IOS CHARTED. FRESH ICE WATER PROVIDED. PATIENT HAS AMBULATED AROUND NURSES STAION SEVERAL TIMES THIS MORNING.
--- NOTE | 2021-11-08 10:16 | NUR ---
PT UP YET AGAIN AMBULATING IN MAHAN, INDEPENDANT AND STEADY ON FEET. . PT DENIES PAIN AND NAUSEA AND STATES "I'M JUST WAITING TO GO HOME." PT BACK TO ROOM, AND UP TO CHAIR. NO ADDITIONAL REQUESTS OR COMPLAINTS. CALL LIGHT WITHIN REACH.
--- NOTE | 2021-11-08 11:20 | NUR ---
THIS RN TO ROOM TO CHECK ON PT. PT UP TO RECLINER. REPORTS 05/22 "SORE THROAT." PT DENIES NEED FOR PAIN MEDICATIONS. NO ADDITIONAL REQUESTS OR COMPLAINTS. CALL LIGHT WITHIN REACH.
--- NOTE | 2021-11-08 12:30 | NUR ---
THIS RN TO ROOM TO CHECK ON PT. PT UPDATED ON PLAN OF CARE. PT CONTINUES TO REPORT 1/10 PAIN IN NECK/THROAT. PT DENIES NEED FOR PAIN MEDICATION AT THIS TIME. DR. VALDOVINOS TO BEDSIDE TO REVIEW PLAN FOR DISCHARGE WITH PT. PT VERBALIZES UNDESTANDING AND STATES HIS QUESTIONS HAVE BEEN ANSWERED. PT DENIES ADDITIONAL REQUESTS OR COMPLAINTS. CALL LIGHT WITHIN REACH.
[2021-11-08] MEDS ORDERED: ACETAMINOPHEN500 MG PO (12:56)
--- NOTE | 2021-11-08 13:13 | NUR ---
DISCHARGE VITALS AND I&OS CHARTED. IV REMOVED AND CHARTED. PATIENT AWAKE AND SITTING IN RECLINER. NO OTHER NEEDS AT THIS TIME
--- NOTE | 2021-11-08 13:20 | NUR ---
PT READY FOR DISCHARGE. IV DC'D BY DIRECTOR MORTGAGE, VITAL SIGNS STABLE. ACTICOAT DRESSING REMOVED BY . STERI STRIPS REMAIN INTACT, NO NEW DRAINAGE NOTED. PT CONTINUES TO REORT 05/22 "SORE THROAT." PT DENIES NEED FOR PAIN MEDICATION STATING "I'LL JUST TAKE TYELNOL AT HOME IF I NEED IT." DISCHARGE INSTRUCTIONS REVIEWED WITH PT. PT VERBALIZES UNDERSTANDING OF INSTRUCTIONS, MEDICATIONS, AND FOLLOW UP. PT STATES HIS QUESTIONS HAVE BEEN ANSWERED. PT AMBULATES FROM MED/SURG WITH NO ASSISTANCE NEEDED TO MEET HIS FRIEND AT THE FRONT OF THE HOSPITAL. NO ADDITONAL REQUESTS OR CONCERNS.
--- NOTE | 2021-11-09 14:02 | PATH ---
[facility] [address] [place], [place] [address] Signed SPECIMEN(S): A LEFT THYROID LOBE SPECIMEN SOURCE: A. LEFT THYROID LOBE CLINICAL HISTORY: Toxic left thyroid nodule. FINAL PATHOLOGIC DIAGNOSIS: Thyroid, left, lobectomy: - Benign colloid nodule. - An incidental lymph node without significant histopathologic changes is identified. BEN:duke:C2NR MICROSCOPIC EXAMINATION: Histologic sections of all submitted blocks are examined by light microscopy. These findings, together with the gross examination, support the pathologic diagnosis. GROSS DESCRIPTION: The specimen, labeled "BB, left thyroid lobe," is received in formalin and consists of thyroid lobe and isthmus with overall dimensions 5.5 x 3.5 x 1.7 cm. The left lobe measures 3.5 x 3.5 x 1.2 cm. The isthmus measures 2.2 x 1.7 x 0.9 cm. The specimen weight is 10 g. Outside surface is violaceous and smooth. Lymph nodes or parathyroid tissue are not grossly identified. The specimen is inked: Anterior-blue, posterior-black and isthmus resection margin-red. The left lobe is serial sectioned from superior to inferior pole. Sectioning through the lobe reveals one pink-lee colloid nodule that measures 0.7 cm in diameter. The colloid nodule is in the lower pole. The remaining of the tissue is beefy-red and homogenous. Sectioning through the isthmus is grossly unremarkable. Cassette summary: (A1-A6) left lobe, entirely and sequentially submitted from superior to inferior pole (A7-A8) isthmus, entirely and sequentially submitted from superior to inferior. JS (under the direct supervision of a pathologist) The Gross Description was prepared using a voice recognition system. The report PATIENT NAME: BRIAN CHILDERS PATHOLOGY DATE OF : 60 REPORT #: [id number] PHYSICIAN: SHAGUFTA PATIÑO PCP: LATRELL GUTIÉRREZ MD REPORT IS CONFIDENTIAL AND NOT TO BE RELEASED WITHOUT AUTHORIZATION [facility] [address] [place], [place] [address] Signed was reviewed for accuracy; however, sound-alike word errors, addition and/or deletions may occur. If there is any question about this report, please contact Client Services. PERFORMING LABORATORY: The technical component was performed by [facility], [address] [place] [address] (CLIA# [id number]). The professional interpretation was performed by [facility], [facility], [address] [place] [address] (CLIA#: [id number]). Diagnostician: Michael Martinez MD Pathologist Electronically Signed 11/09/2021 Copies: ~ PATIENT NAME: BRIAN CHILDERS PATHOLOGY DATE OF : 60 REPORT #: [id number] PHYSICIAN: SHAGUFTA PATHOLOGY PCP: LATRELL GUTIÉRREZ MD REPORT IS CONFIDENTIAL AND NOT TO BE RELEASED WITHOUT AUTHORIZATION
--- NOTE | 2021-11-10 14:40 | OR ---
[facility] [address], [place] [address] Signed DATE OF OPERATION: 11/07/2021 SURGEON: Jacque Valdovinos MD PREOPERATIVE DIAGNOSES: Left hot nodule, subclinical hyperthyroidism; 23 mm nodule lower pole. POSTOPERATIVE DIAGNOSES: Left hot nodule, subclinical hyperthyroidism; 23 mm nodule lower pole. PROCEDURE: Left total thyroid lobectomy with isthmusectomy. ANESTHESIA: General endotracheal; Mich Mendoza CRNA. INDICATIONS: This 61-year-old white man is a patient of Dr. Latrell Gutiérrez. He had complaints of dysphagia and was known to have gastroesophageal reflux. LABORATORY DATA: Lab studies had shown a markedly decreased TSH consistent with hyperthyroidism. His T4 and T3 were only mildly elevated. He has had no systemic manifestations of thyrotoxicosis. Ultrasound performed showed a 23 mm left lower pole nodule and two smaller nodules in the superior left pole. Fine-needle aspiration biopsy showed [place] category 2 lesion as would be expected. A nuclear medicine scan showed the left lower pole nodule to be "warm." Upper endoscopy had been performed confirming distal esophagitis and treatment. PPI medication has cleared up his dysphagia largely. On the basis of his subclinical hyperthyroidism related to a left lower pole hyperfunctioning nodule options of management have been reviewed. A left thyroid lobectomy is planned for today to return into euthyroid state. The risks of bleeding, infection, recurrent laryngeal nerve injury, and parathyroid excision which are not intended, external laryngeal nerve injury, and of course, other unforeseen complications including cosmetic deformity were all reviewed in detail. He understands and wished to proceed. FINDINGS: The thyroid lobe itself was rather small, actually. The nodule itself was firm and rubbery and located in the lower pole. Other nodules were not identified by palpation. Complete left thyroid lobectomy with isthmusectomy was accomplished. The recurrent Electronically Signed By: JACQUE VALDOVINOS MD 11/10/21 1440 PATIENT NAME: BRIAN CHILDRES OPERATIVE REPORT DATE OF : 60 REPORT #: [id number] PHYSICIAN: JACQUE VALDOVINOS MD PCP: LATRELL GUTIÉRREZ MD REPORT IS CONFIDENTIAL AND NOT TO BE RELEASED WITHOUT AUTHORIZATION [facility] [address], [place] [address] Signed laryngeal nerve was identified and parathyroid elements were allowed to remain in situ. He had no known complication. DESCRIPTION OF PROCEDURE: The patient was brought to the operating room, given a general endotracheal anesthetic. Preoperative antibiotic Ancef was given. Sequential compression stockings were used. A shoulder roll was placed in his neck, placed in extension and arturo lounge position was fashioned with the table. The anterior neck was clipped and prepared with a chlorhexidine solution and draped sterilely. Natural skin creases were well demarcated in area appropriate for incision marked. Incision extended between the medial heads of the sternocleidomastoid muscle. Dissection was carried through the dermis with a sharp dissection. Electrocautery was used to transect the tissue including platysmal layer. Superior and inferior flaps were developed using electrocautery and blunt dissection. Gelpi retractors were placed and midline avascular plane identified and incised longitudinally freeing the sternohyoid and sternothyroid muscles. Sharp dissection was used to more fully identify the left thyroid lobe. The lobe itself was rather small. The nodule was palpated inferiorly. Using blunt and sharp dissection, the loose areolar attachments were freed. A Alvarez retractor was used to elevate the muscles laterally and provide a nice loose areolar plane posteriorly. The middle thyroidal veins were ligated with 4-0 silk ties and divided. The superior polar vessels were individually ligated and secured with silk ties also. Inferior dissection was similarly undertaken and vessels . The thyroid was rolled from lateral to medial and using a Kittner dissector, the posterior elements were freed and allowed to remain in situ. The posterior elements including parathyroid glands were from the thyroid itself. The ligament of Hoffman was gently dissected free and transected with a small amount of electrocautery. Ultimately, the recurrent laryngeal nerve was identified as it entered the trachea well out of harm's way. By this point, the avascular plane between the thyroid and the trachea was developed. Hemostats were applied to the right lateral aspect of the isthmus of the thyroid and divided. The thyroidal elements were secured with 3-0 silk suture. Irrigation was undertaken showing no sign of bleeding. Tisseel aerosolized was applied to the wound bed. Midline strap muscles were reapproximated with interrupted 2-0 Vicryl. Platysma layers reapproximated with interrupted 3-0 Vicryl and skin closed with a running subcuticular 4-0 Vicryl. Steri-Strips were applied as was an Acticoat dressing. The patient tolerated the procedure well. There were no complications. Sponge, needle, and instrument counts were reported as correct x3. Jacque Valdovinos MD Electronically Signed By: JACQUE VALDOVINOS MD 11/10/21 1440 PATIENT NAME: BRIAN CHILDERS OPERATIVE REPORT DATE OF : 60 REPORT #: [id number] PHYSICIAN: JACQUE VALDOVINOS MD PCP: LATRELL GUTIÉRREZ MD REPORT IS CONFIDENTIAL AND NOT TO BE RELEASED WITHOUT AUTHORIZATION [facility] [address] [place] [address] Signed /JOEL /[id number] cc: Latrell Gutiérrez MD Copies: LATRELL GUTIÉRREZ DMD ~ Electronically Signed By: JACQUE VALDOVINOS MD 11/10/21 1440 PATIENT NAME: BRIAN CHILDERS OPERATIVE REPORT DATE OF : 60 REPORT #: [id number] PHYSICIAN: JACQUE VALDOVINOS MD PCP: LATRELL GUTIÉRREZ MD REPORT IS CONFIDENTIAL AND NOT TO BE RELEASED WITHOUT AUTHORIZATION
== END 2021-11-08 13:24 | disposition home or self-care (01) ==
LOC: DS 05:41 → MS 09:51 → DS 09:51 → MS 10:10 → DS 10:10 → MS 11-08 13:24
PROVIDERS: ADMIT Surgery; ATTEND Surgery
PROC: 0GTG0ZZ Resection of Left Thyroid Gland Lobe, Open Approach (ICD-10-PCS; principal; 2021-11-07 06:45)
DX: E05.20 Thyrotoxicosis with toxic multinodular goiter without thyrotoxic crisis or storm (principal); K21.00 Gastro-esophageal reflux disease with esophagitis, without bleeding; Z80.0 Family history of malignant neoplasm of digestive organs; Z86.010 Personal history of colon polyps; E66.01 Morbid (severe) obesity due to excess calories; N40.1 Benign prostatic hyperplasia with lower urinary tract symptoms; Z68.34 Body mass index [BMI] 34.0-34.9, adult
CPT/HCPCS: 00320; 36415; 84443; G0378; J0690; J1100; J1885; J2001; J2405; J2704; J3010; J7121

== ENCOUNTER 2024-02-21 08:44 | Day surgery (SDC) | payer BC ==
[~2024-02-21] VITALS: Ht 167.6 cm; Wt 103.2 kg
[~2024-02-21 08:44] MED LIST changes: +ACETAMINOPHEN500 MG PO; +CEPHALEXIN500 M1 PO; +FLUTICASONE PRO16 GM NAS; +IBLOOD GLUCOSE TEST STRIP 1 EA TEST VI PRN; +LACTATED RINGER'S 1,000 ML IV SCH; +LIDOCAINE HCL 1% 5 ML SDV INJ ONE; +LIDOCAINE HCL 4% 50 ML BTL TOP SCH; +MIDAZOLAM HCL 5 MG/5 ML VIAL IV PRN; +ROSUVASTATIN CA10 MG PO; +fentaNYL citrate 100 MCG/2 ML VIAL IV PRN
[2024-02-21 08:56] VITALS: BP 142/67
[2024-02-21] MEDS ORDERED: MIDAZOLAM HCL 5 MG/5 ML VIAL ONE (10:55)
[2024-02-21] MEDS ORDERED: fentaNYL citrate 100 MCG/2 ML VIAL ONE (10:56)
[2024-02-21 12:36] VITALS: BP 138/72
--- NOTE | 2024-02-21 13:51 | NUR ---
02/21/24 1351 Chanell Parra 1213-PT ARRIVES TO THE PACU WITH EYES OPEN AND ANSWERING QUESTIONS. PT HAS 3L OF O2 VIA MASK. PT DENIES PAIN AND NAUSEA. ALL MONITORS PUT IN PLACE. PT ENCOURAGED TO PASS GAS. PT PASSES GAS ON AND OFF. NO APPARENT DISTRESS 1217- O2 TURNED OFF. 1226- MD AT BEDSIDE TALKING WITH PT. 1230- PT HOB INCREASED. 1240- PT SITTING UP AT SIDE OF BED. NO DIZZINESS OR NAUSEA. PT SIPPING ON WATER AND TOLERATING WELL. 1245-MONITORS REMOVED. PT GETTING DRESSED INDEPENDENTLY WITH NO ISSUE. IV REMOVED. 1250- PT AMBULATES TO WITH EVEN AND STEADY GAIT. PT HAS ALL BELONGINGS. NO QUESTIONS OR CONCERNS.
--- NOTE | 2024-02-23 14:26 | OR ---
[facility] [address], [place] [address] Signed DATE OF OPERATION: 02/21/2024 SURGEON: Jacque Valdovinos MD PREOPERATIVE DIAGNOSES: 1. Longstanding gastroesophageal reflux and prior history of eosinophilic esophagitis. 2. Colon screening. POSTOPERATIVE DIAGNOSES: 1. Hiatal hernia with mild chronic distal esophagitis, stigmata of the eosinophilic esophagitis (mild). 2. Micro epiphrenic diverticular ostia. 3. Diverticular change of colon. PROCEDURES: 1. Esophagogastroduodenoscopy with biopsy. 2. Total colonoscopy to cecum. ANESTHESIA: Intravenous sedation; fentanyl 150 mcg, Versed 8 mg. INDICATION: This 63-year-old white man is a patient of Dr. Latrell Gutiérrez and known to me from the past. He has been diagnosed in the past with reflux esophagitis and eosinophilic esophagitis. He takes Prilosec on a daily basis with good control of reflux symptoms. Additionally, he has undergone colonoscopy in the past and distant polypectomy. He currently has no symptoms of bleeding, diarrhea or constipation. He is admitted at this time to undergo upper endoscopy and colonoscopy. He understands the risk of bleeding, infection, and perforation. FINDINGS: Upper endoscopy showed a hiatal hernia. Mild chronic distal esophagitis, but no evidence of Hackett's epithelium. There were few micro ostia of the distal esophagus indicative of tiny epiphrenic diverticula. The midesophagus had mild inflammation and some felinization, but not distinct. CLOtest was negative. Stomach and duodenum were essentially normal. On colonoscopy, the prep was quite good. Complete colonoscopy was undertaken to the cecum. There were few scattered diverticula but no polyps, colitis, or other problem. Electronically Signed By: JACQUE VALDOVINOS MD 02/23/24 1426 PATIENT NAME: BRIAN CHILDERS OPERATIVE REPORT DATE OF : 60 REPORT #: [id number] PHYSICIAN: JACQUE VALDOVINOS MD PCP: LATRELL GUTIÉRREZ MD REPORT IS CONFIDENTIAL AND NOT TO BE RELEASED WITHOUT AUTHORIZATION [facility] [address], [place] [address] Signed PROCEDURE IN DETAIL: The patient was brought to the endoscopy suite, given lidocaine hypopharyngeal anesthesia, given intravenous sedation to the point of slurred speech and nystagmus. A bite block was placed. An Olympus video upper endoscope was passed in the hypopharynx. The vocal cords were normal. Scope was easily passed in the esophagus throughout its length, it appeared essentially normal. There was some mild distal inflammation. There was no evidence of Hackett's. The scope was advanced to the stomach which was insufflated with air. Rugal folds were normal. Pylorus was normal. Scope was passed through into the duodenum. Second, third and bulbar portions were reasonably normal. Biopsies were taken of the second and bulbar portions. The scope was withdrawn. Biopsies taken of the antrum for both YAKELIN and pathologic testing. There was a small gastric polyp which was resected as well. There were not numerous polyps that was noted. Retroflexed view confirmed a hiatal hernia. The scope was withdrawn and biopsies taken of the distal esophagus as there was some mild chronic inflammation but no obvious Hackett epithelium. The scope was withdrawn to the mid esophagus and biopsies were taken there as well. Further withdrawal showed no other abnormality. Plans were then made for colonoscopy. Additional sedation was given including fentanyl and Versed. A digital rectal examination was performed and an Olympus video colonoscope passed in the rectum and manipulated throughout the colon noting a several scattered diverticula of the sigmoid and left colon. The scope was ultimately advanced to the cecum. The ileocecal valve and appendiceal orifice were normal. The scope was withdrawn and careful inspection showed no sign of abnormality other than a few diverticula. Retroflexed view of the rectum was normal. Scope was removed. The patient was taken to the recovery room in good condition. CONCLUDING DIAGNOSES: 1. Hiatal hernia with mild chronic esophagitis, well controlled; gastric polyps, small and likely benign. 2. Possible residual eosinophilic esophagitis. Biopsies pending. 3. Diverticular changes in colon without polyps. PLAN: Recommend repeat colonoscopy in 10 years. We will review path report and schedule followup as appropriate if necessary. Jacque Valdovinos MD Electronically Signed By: JACQUE VALDOVINOS MD 02/23/24 1426 PATIENT NAME: BRIAN CHILDERS OPERATIVE REPORT DATE OF : 60 REPORT #: [id number] PHYSICIAN: JACQUE VALDOVINOS MD PCP: LATRELL GUTIÉRREZ MD REPORT IS CONFIDENTIAL AND NOT TO BE RELEASED WITHOUT AUTHORIZATION [facility] [address], [place] [address] Signed /MODL /[id number] cc: Latrell Gutiérrez MD Copies: LATRELL GUTIÉRREZ DMD ~ Electronically Signed By: JACQUE VALDOVINOS MD 02/23/24 1426 PATIENT NAME: BRIAN CHILDERS OPERATIVE REPORT DATE OF : 60 REPORT #: [id number] PHYSICIAN: JACQUE VALDOVINOS MD PCP: LATRELL GUTIÉRREZ MD REPORT IS CONFIDENTIAL AND NOT TO BE RELEASED WITHOUT AUTHORIZATION
--- NOTE | 2024-02-25 18:31 | PATH ---
[facility] [address], [place] [address] Signed SPECIMEN(S): A DUODENAL BIOPSY SPECIMEN(S): B DUODENAL BULB BIOPSY SPECIMEN(S): C ANTRUM BIOPSY SPECIMEN(S): D GASTRIC POLYP SPECIMEN(S): E LOWER ESOPHAGEAL BIOPSY SPECIMEN(S): F MIDDLE ESOPHAGEAL BIOPSY SPECIMEN SOURCE: A. DUODENAL BIOPSY B. DUODENAL BULB BIOPSY C. ANTRUM BIOPSY D. GASTRIC POLYP E. LOWER ESOPHAGEAL BIOPSY F. MIDDLE ESOPHAGEAL BIOPSY CLINICAL HISTORY: Pre-: GERD. Anemia. Family history of esophageal cancer. History of colon polyps. Post: EGD: Distal esophagitis with hiatal hernia FINAL PATHOLOGIC DIAGNOSIS: A. Duodenum, biopsy: - Duodenal mucosa with normal villous architecture. - Negative for acute, chronic, and granulomatous inflammation. - Negative for dysplasia and malignancy. B. Duodenal bulb, biopsy: - Duodenal mucosa with Maryjane's glands. - No villous abnormality identified. - Negative for acute, chronic, and granulomatous inflammation. - Negative for dysplasia and malignancy. C. Stomach, antrum, biopsy: - Antral and acid-secreting gastric mucosa with slight focal chronic inflammation and mild superficial vascular congestion. - No acute or active inflammation identified. - No H. pylori-like organisms identified on routine HE-stained histologic sections. - Negative for intestinal metaplasia, dysplasia, and malignancy. D. Gastric polyp, biopsy: - Portions of hyperplastic gastric polyp (3 of 4 pieces). - Portion of unremarkable gastric mucosa (1 of 4 pieces). - Slight focal chronic inflammation is present, with no acute or active PATIENT NAME: BRIAN CHILDERS PATHOLOGY DATE OF : 60 REPORT #: [id number] PHYSICIAN: SHAGUFTA PATIÑO PCP: LATRELL GUTIÉRREZ MD REPORT IS CONFIDENTIAL AND NOT TO BE RELEASED WITHOUT AUTHORIZATION [facility] [address], [place] [address] Signed inflammation. - No H. pylori-like organisms identified on routine HE-stained histologic sections. - Negative for intestinal metaplasia, dysplasia, and malignancy. E. Lower esophagus, biopsy: - Stratified squamous esophageal mucosa with eosinophilic inflammation; consistent with reflux esophagitis. - Eosinophils average 5.5 per high-power field. - No glandular epithelium identified. - Negative for dysplasia and malignancy. F. Middle esophagus, biopsy: - Stratified squamous esophageal mucosa with eosinophilic inflammation; consistent with reflux esophagitis. - Eosinophils average 8 per high-power field. - Negative for dysplasia and malignancy. SDL MICROSCOPIC EXAMINATION: Histologic sections of all submitted blocks are examined by light microscopy. These findings, together with the gross examination, support the pathologic diagnosis. GROSS DESCRIPTION: A. The specimen, labeled and designated "Bacus, duodenum biopsy," is received in formalin and consists of one lee soft tissue fragment, 0.3 cm. Entirely submitted in (A1). B. The specimen, labeled and designated "Bacus, duodenum bulb biopsy," is received in formalin and consists of two lee soft tissue fragments, ranging from 0.2 cm. Entirely submitted in (B1). C. The specimen, labeled and designated "Bacus, antrum biopsy," is received in formalin and consists of three lee soft tissue fragments, ranging from 0.1 to 0.2 cm. Entirely submitted in (C1). D. The specimen, labeled and designated "Bacus, gastric polyp," is received in formalin and consists of three lee soft tissue fragments, ranging from 0.3-0.4 cm. Entirely submitted in (D1). E. The specimen, labeled and designated "Bacus, lower esophagus biopsy," is received in formalin and consists of three lee soft tissue fragments, ranging from 0.2 to 0.3 cm. Entirely submitted in (E1). F. The specimen, labeled and designated "Bacus, middle esophagus biopsy," is received in formalin and consists of three lee soft tissue fragments, ranging PATIENT NAME: BRIAN CHILDERS PATHOLOGY DATE OF : 60 REPORT #: [id number] PHYSICIAN: SHAGUFTA PATHOLOGY PCP: LATRELL GUTIÉRREZ MD REPORT IS CONFIDENTIAL AND NOT TO BE RELEASED WITHOUT AUTHORIZATION [address] [address] Signed from 0.2 cm. Entirely submitted in (F1). JS (under the direct supervision of a pathologist) The Gross Description was prepared using a voice recognition system. The report was reviewed for accuracy; however, sound-alike word errors, addition and/or deletions may occur. If there is any question about this report, please contact Client Services. ADDITIONAL NOTES: Immunohistochemical and/or in situ hybridization studies if performed in this case included appropriate positive controls that reacted as expected. This test was developed and its performance characteristics determined by [facility]. It has not been cleared or approved by the U.S. Food and Drug Administration. The FDA has determined that such clearance or approval is not necessary. This test is used for clinical purposes. It should not be regarded as investigational or for research. [facility] is certified under the Clinical Laboratory Improvement Amendments of 1988 (CLIA) as qualified to perform high complexity clinical laboratory testing. PERFORMING LABORATORY: Technical component was performed by [facility], [address] [place] [id number] (CLIA# [id number]). Professional interpretation was performed by [facility], [address] [place] [id number] (CLIA#: [id number]). Diagnostician: Pauline Nielsen MD Pathologist Electronically Signed 02/25/2024 Copies: ~ PATIENT NAME: BRIAN CHILDERS PATHOLOGY DATE OF : 60 REPORT #: [id number] PHYSICIAN: ARTUROLeadjini PATHOLOGY PCP: LATRELL GUTIÉRREZ MD REPORT IS CONFIDENTIAL AND NOT TO BE RELEASED WITHOUT AUTHORIZATION
== END 2024-02-21 12:50 | disposition home or self-care (01) ==
LOC: OPS 08:44 → DSVR 08:45 → DS 08:45 → OPS 10:00
PROVIDERS: ATTEND Surgery
PROC: 0DB68ZX Excision of Stomach, Via Natural or Artificial Opening Endoscopic, Diagnostic (ICD-10-PCS; 2024-02-21)
PROC: 0DJD8ZZ Inspection of Lower Intestinal Tract, Via Natural or Artificial Opening Endoscopic (ICD-10-PCS; principal; 2024-02-21 10:00)
PROC: 0DB38ZX Excision of Lower Esophagus, Via Natural or Artificial Opening Endoscopic, Diagnostic (ICD-10-PCS; 2024-02-21 10:00)
DX: Z12.11 Encounter for screening for malignant neoplasm of colon (principal); K44.9 Diaphragmatic hernia without obstruction or gangrene; K21.00 Gastro-esophageal reflux disease with esophagitis, without bleeding; K20.0 Eosinophilic esophagitis; K29.50 Unspecified chronic gastritis without bleeding; K31.7 Polyp of stomach and duodenum; K57.30 Diverticulosis of large intestine without perforation or abscess without bleeding; D64.9 Anemia, unspecified; E05.90 Thyrotoxicosis, unspecified without thyrotoxic crisis or storm; Z79.899 Other long term (current) drug therapy; Z80.0 Family history of malignant neoplasm of digestive organs; Z86.0100 Personal history of colon polyps, unspecified
CPT/HCPCS: 99153; G0500; J2250; J3010; J7121